=== PATIENT | female | born 1970 | race Hispanic/Latino ===

== ENCOUNTER 2018-08-26 16:26 | Emergency (ER) | payer MEDICARE ==
[2018-08-26] MEDS ORDERED: LIDOCAINE 2%-EPI 1:200,000 20 ML VIAL IJ ONE (16:49)
[2018-08-26] MEDS ORDERED: IBUPROFEN 600 MG TABLET ONE (16:49)
[2018-08-26] MEDS ORDERED: TETANUS/DIPHTHERIA TOXOID [ADULT] 0.5 ML VIAL IM ONE (16:50)
== END 2018-08-26 18:20 | disposition home or self-care (01) ==
LOC: EDH 16:26
DX: S81.011A Laceration without foreign body, right knee, initial encounter (principal); S76.011A Strain of muscle, fascia and tendon of right hip, initial encounter; W18.39XA Other fall on same level, initial encounter; Y93.01 Activity, walking, marching and hiking; Y92.098 Other place in other non-institutional residence as the place of occurrence of the external cause; Y99.8 Other external cause status
CPT/HCPCS: 12032; 73562; 90471; 90714; 99284; J3490

== ENCOUNTER 2018-10-15 12:18 | Emergency (ER) | payer MEDICARE ==
[2018-10-15 13:30] LABS: BASOPHILS % (AUTO) 0.5 % (0.0-5.0); EOSINOPHILS % (AUTO) 0.6 % (0.0-8.0); HEMATOCRIT 38.6 % (36-48); LYMPHOCYTES % (AUTO) 6.7 % (21.0-51.0); MEAN CORPUSCULAR HGB CONC 32.1 g/dL (32.0-36.0); MEAN CORPUSCULAR VOLUME 80.9 fL (79-99); MONOCYTES % (AUTO) 7.3 % (3.0-13.0); NEUTROPHILS % (AUTO) 84.9 % (40.0-77.0); PLATELET COUNT (AUTO) 392 K/uL (130-400); RED BLOOD CELL COUNT(AUTO) 4.77 MIL/uL (4.00-5.50); RED CELL DISTRIBUTION WIDTH 15.3 % (11.0-15.5); WHITE BLOOD COUNT (AUTO) 16.4 K/uL (4.8-10.8)
[2018-10-15] MEDS ORDERED: ONDANSETRON HCL 4 MG/2 ML VIAL ONE (13:46)
[2018-10-15] MEDS ORDERED: ACETAMINOPHEN EXTRA STRENGTH 500 MG TABLET ONE (13:46)
[2018-10-15] MEDS ORDERED: MORPHINE SULFATE 4 MG/1ML SYG ONE (13:46)
[2018-10-15] MEDS ORDERED: SODIUM CHLORIDE 0.9% 1000ML 1,000 ML IV ONE (13:47)
[2018-10-15 14:05] LABS: POTASSIUM 4.4 mmol/L (3.5-5.1)
[2018-10-15 14:12] LABS: ALBUMIN 3.3 g/dL (3.5-5.0); BILIRUBIN,TOTAL 0.5 mg/dL (0.2-1.0); TOTAL PROTEIN, SERUM 7.2 g/dL (6.0-8.3)
[2018-10-15 15:22] LABS: APPEARANCE,URINE SL CLOUDY (CLEAR); BILIRUBIN,URINE NEGATIVE (NEGATIVE); COLOR,URINE YELLOW (YELLOW); GLUCOSE, URINE (UA) NEGATIVE (NEGATIVE); KETONES,URINE NEGATIVE (NEGATIVE); LEUKOCYTE ESTERASE ,URINE SMALL (NEGATIVE); NITRATE,URINE NEGATIVE (NEGATIVE); OCCULT BLOOD,URINE NEGATIVE (NEGATIVE); PH,URINE 6.5 (5.0-8.0); PROTEIN,URINE NEGATIVE (NEGATIVE); UROBILINOGEN,URINE 0.2 mg/dL (0.2-1.0)
[2018-10-15 15:24] LABS: HCG,QUAL RESULT NEGATIVE (NEGATIVE)
[2018-10-15] MEDS ORDERED: CEFTRIAXONE SODIUM 1 GM ONE ×2 (16:19→16:22)
[2018-10-15] MEDS ORDERED: SODIUM CHLORIDE 0.9% 100 ML IV ONE (16:19)
[2018-10-15 16:33] LABS: BACTERIA,URINE Moderate /HPF (None Seen); RBC,URINE 0-1 /HPF (0-1); SQUAMOUS EPITHELIAL CELL,UR Moderate /HPF (0-2)
== END 2018-10-15 17:35 | disposition home or self-care (01) ==
LOC: EDH 12:18
DX: N39.0 Urinary tract infection, site not specified (principal); R10.32 Left lower quadrant pain; R50.9 Fever, unspecified; Z98.890 Other specified postprocedural states
CPT/HCPCS: 36415; 74176; 80053; 81001; 81025; 83690; 85025; 96374; 96375; 99285; J0696 ×2; J2270; J2405; J7030

== ENCOUNTER 2019-11-23 12:39 | Emergency (ER) | payer MEDICARE ==
[2019-11-23 13:24] LABS: APPEARANCE,URINE Clear (CLEAR); BILIRUBIN,URINE Negative (NEGATIVE); COLOR,URINE Yellow (YELLOW); GLUCOSE, URINE (UA) Negative (NEGATIVE); KETONES,URINE Negative (NEGATIVE); LEUKOCYTE ESTERASE ,URINE Negative (NEGATIVE); NITRATE,URINE Negative (NEGATIVE); OCCULT BLOOD,URINE Negative (NEGATIVE); PROTEIN,URINE Negative (NEGATIVE); UROBILINOGEN,URINE 0.2 mg/dL (0.2-1.0)
[2019-11-23] MEDS ORDERED: ONDANSETRON HCL 4 MG/2 ML VIAL ONE (13:24)
[2019-11-23] MEDS ORDERED: SODIUM CHLORIDE 0.9% 1000ML 1,000 ML IV ONE (13:25)
[2019-11-23] MEDS ORDERED: KETOROLAC TROMETHAMINE 30MG/ML ONE (13:25)
[2019-11-23 13:27] LABS: BASOPHILS % (AUTO) 0.5 % (0.0-5.0); EOSINOPHILS % (AUTO) 2.8 % (0.0-8.0); HEMATOCRIT 36.1 % (36-48); LYMPHOCYTES % (AUTO) 11.3 % (21.0-51.0); MEAN CORPUSCULAR HEMOGLOBIN 25.3 pg (27.0-33.0); MEAN CORPUSCULAR HGB CONC 31.6 g/dL (32.0-36.0); MEAN CORPUSCULAR VOLUME 80.2 fL (79-99); MONOCYTES % (AUTO) 7.6 % (3.0-13.0); NEUTROPHILS % (AUTO) 77.5 % (40.0-77.0); PLATELET COUNT (AUTO) 455 K/uL (130-400); RED CELL DISTRIBUTION WIDTH 15.7 % (11.0-15.5); WHITE BLOOD COUNT (AUTO) 17.9 K/uL (4.8-10.8)
[2019-11-23 13:41] LABS: CREATININE 0.8 mg/dL (0.5-1.5)
[2019-11-23 13:46] LABS: BILIRUBIN,DIRECT 0.1 mg/dL (0.0-0.3); BILIRUBIN,TOTAL 0.3 mg/dL (0.2-1.0)
== END 2019-11-23 14:50 | disposition home or self-care (01) ==
LOC: EDH 12:39
DX: K52.9 Noninfective gastroenteritis and colitis, unspecified (principal); Z98.890 Other specified postprocedural states
CPT/HCPCS: 36415; 74176; 80048; 80076; 81003; 82550; 83690; 85025; 96361; 96374; 96375; 99284; J1885; J2405; J7030

== ENCOUNTER → 2020-04-14 | Outpatient (CLI) | payer MEDICARE ==
[~2020-04-14] VITALS: Ht 2.5 cm; Wt 93.9 kg
== END | disposition home or self-care (01) ==
LOC: DTH 14:00
PROVIDERS: ATTEND Surgery
DX: E66.09 Other obesity due to excess calories (principal); E11.9 Type 2 diabetes mellitus without complications
CPT/HCPCS: 97802

== ENCOUNTER → 2020-05-14 | Outpatient (CLI) | payer MEDICARE | END | disposition home or self-care (01) | LOC: DTH 10:00 | PROVIDERS: ATTEND Surgery | DX: E66.09 Other obesity due to excess calories (principal); E11.9 Type 2 diabetes mellitus without complications | CPT/HCPCS: 97803 ==

== ENCOUNTER 2020-05-30 06:53 | Day surgery (SDC) | payer MEDICARE ==
[~2020-05-30] VITALS: Ht 152.4 cm; Wt 91.6 kg
[2020-05-30] VITALS (8 sets, daily range): BP systolic 106–142; BP diastolic 65–87
[~2020-05-30 06:53] MED LIST: ALPR1TAB7 PO; BUDE10.22 IH; BUTA-256 PO
[2020-05-30] MEDS ORDERED: MV-M1TAB20 PO (08:26)
[2020-05-30] MEDS ORDERED: SODIUM CHLORIDE 0.9% 1000ML 1,000 ML IV ONE (08:39)
[2020-05-30] MEDS ORDERED: PROPOFOL 10 MG/ML 20ML VIAL IV ONE (09:04)
== END 2020-05-30 09:55 | disposition home or self-care (01) ==
LOC: DAH 06:53 → ENDO 06:53
PROVIDERS: ATTEND Surgery
DX: K21.00 Gastro-esophageal reflux disease with esophagitis, without bleeding (principal); Z20.822 Contact with and (suspected) exposure to COVID-19; E11.9 Type 2 diabetes mellitus without complications; M06.9 Rheumatoid arthritis, unspecified; E66.01 Morbid (severe) obesity due to excess calories; Z98.891 History of uterine scar from previous surgery; Z83.3 Family history of diabetes mellitus; Z82.49 Family history of ischemic heart disease and other diseases of the circulatory system; Z82.61 Family history of arthritis; Z82.3 Family history of stroke; Z68.38 Body mass index [BMI] 38.0-38.9, adult; Z83.42 Family history of familial hypercholesterolemia
CPT/HCPCS: 43239; 93005; A4215 ×2; A4221; A4222; A4223; A4606; A4620; A4657; A4663; C9803; J2704; J7030; U0003

== ENCOUNTER → 2020-06-18 | Outpatient (CLI) | payer MEDICARE ==
[~2020-06-18] MED LIST changes: +MV-M1TAB20 PO
== END | disposition home or self-care (01) ==
LOC: DTH 13:12
PROVIDERS: ATTEND Surgery
DX: E11.9 Type 2 diabetes mellitus without complications (principal); E66.09 Other obesity due to excess calories
CPT/HCPCS: 97803

== ENCOUNTER → 2020-06-24 | Outpatient (CLI) | payer MEDICARE | END | disposition home or self-care (01) | LOC: RAH 13:11 | PROVIDERS: ATTEND Surgery | DX: R06.02 Shortness of breath (principal) | CPT/HCPCS: 71046 ==

== ENCOUNTER 2020-06-30 13:00 | Inpatient (IN) | payer MEDICARE ==
[~2020-06-30] VITALS: Ht 154.9 cm; Wt 90.4 kg
[2020-06-30 15:27] LABS: BASOPHILS % (AUTO) 0.6 % (0.0-5.0); EOSINOPHILS % (AUTO) 3.1 % (0.0-8.0); HEMATOCRIT 36.3 % (36-48); LYMPHOCYTES % (AUTO) 18.9 % (21.0-51.0); MEAN CORPUSCULAR HEMOGLOBIN 24.8 pg (27.0-33.0); MEAN CORPUSCULAR HGB CONC 31.4 g/dL (32.0-36.0); MEAN CORPUSCULAR VOLUME 79.1 fL (79-99); MONOCYTES % (AUTO) 6.9 % (3.0-13.0); NEUTROPHILS % (AUTO) 70.1 % (40.0-77.0); PLATELET COUNT (AUTO) 403 K/uL (130-400); RED BLOOD CELL COUNT(AUTO) 4.59 MIL/uL (4.00-5.50); RED CELL DISTRIBUTION WIDTH 18.2 % (11.0-15.5); WHITE BLOOD COUNT (AUTO) 15.6 K/uL (4.8-10.8)
[2020-06-30 15:37] LABS: CREATININE 0.9 mg/dL (0.5-1.5); POTASSIUM 4.3 mmol/L (3.5-5.1)
[2020-06-30 15:43] LABS: PROTHROMBIN TIME 10.9 SEC (9.6-11.6)
[2020-06-30 15:44] LABS: PARTIAL THROMBOPLASTIN TIME 23.1 SEC (26.3-35.5)
[2020-07-01 09:44] VITALS: BP 114/71
[2020-07-07] VITALS (24 sets, daily range): BP systolic 104–169; BP diastolic 63–95
[2020-07-07] MEDS ORDERED: 0.9% NACL 500ML IV.SOLN 500 ML IV SCH (05:00)
[2020-07-07] MEDS: CEFAZOLIN SODIUM 1 GM VIAL IVP SCH ×2 (06:00→10:50)
[2020-07-07 08:40] LABS: BASOPHILS % (AUTO) 0.5 % (0.0-5.0); EOSINOPHILS % (AUTO) 3.1 % (0.0-8.0); LYMPHOCYTES % (AUTO) 20.4 % (21.0-51.0); MEAN CORPUSCULAR HEMOGLOBIN 24.6 pg (27.0-33.0); MEAN CORPUSCULAR HGB CONC 31.3 g/dL (32.0-36.0); MEAN CORPUSCULAR VOLUME 78.6 fL (79-99); MONOCYTES % (AUTO) 6.6 % (3.0-13.0); PLATELET COUNT (AUTO) 459 K/uL (130-400); RED BLOOD CELL COUNT(AUTO) 5.09 MIL/uL (4.00-5.50); RED CELL DISTRIBUTION WIDTH 17.6 % (11.0-15.5); WHITE BLOOD COUNT (AUTO) 11.6 K/uL (4.8-10.8)
[2020-07-07] MEDS ORDERED: 0.9%NACL 1000ML 1,000 ML IV ONE (09:13)
[2020-07-07] MEDS ORDERED: DIPH25TA51 PO (09:28)
[2020-07-07] MEDS ORDERED: LIDOCAINE PF 100MG/5ML (2%) SYRINGE 5ML ONE (10:01)
[2020-07-07] MEDS ORDERED: SUCCINYLCHOLINE 200MG/10ML SYR ONE (10:01)
[2020-07-07] MEDS ORDERED: ROCURONIUM 10MG/1ML SYR 10 MG/ML ML ONE (10:02)
[2020-07-07] MEDS ORDERED: FENTANYL CITRATE PF 50 MCG/1 ML 2ML VIAL ONE (10:02)
[2020-07-07] MEDS ORDERED: PROPOFOL 10 MG/ML 20ML VIAL IV ONE (10:02)
[2020-07-07] MEDS ORDERED: MIDAZOLAM HCL 1 MG/ML 2ML VIAL ONE (10:12)
[2020-07-07] MEDS ORDERED: BUPIVACAINE/PF 0.5% 30ML VIAL ONE (10:22)
[2020-07-07] MEDS ORDERED: KETOROLAC 30MG VIAL (30MG/ML) ONE (11:29)
[2020-07-07] MEDS ORDERED: ONDANSETRON 4MG INJ ONE ×2 (11:30→11:58)
[2020-07-07] MEDS ORDERED: MEPERIDINE-PF 25 MG/ML SYG ONE ×2 (11:30→11:58)
[2020-07-07] MEDS ORDERED: GLYCOPYRROLATE 1 MG/5 ML SYRINGE ONE (11:30)
[2020-07-07] MEDS ORDERED: NEOSTIGMINE 5MG/5ML SYR IV ONE (11:30)
[2020-07-07] MEDS ORDERED: ONDANSETRON 4MG INJ IVP PRN (11:45)
[2020-07-07] MEDS: LACTATED RINGERS 1000ML 1,000 ML IV SCH ×2 (11:45→19:45)
[2020-07-07] MEDS: MORPHINE 5 MG/ML VIAL (5MG OR GREATER DOSE) IVP PRN ×3 (15:18→23:43)
[2020-07-07] MEDS ORDERED: FAMOTIDINE 20MG VIAL IV ONE (19:27)
[2020-07-07] MEDS ORDERED: ENOXAPARIN SODIUM 30 MG/0.3 ML SQ ONE (19:27)
[2020-07-07] MEDS: ENOXAPARIN SODIUM 30 MG/0.3 ML SQ SCH (19:45)
[2020-07-07] MEDS: FAMOTIDINE 20MG VIAL IV SCH (19:45)
[2020-07-08 03:22] VITALS: BP 171/86
[2020-07-08] MEDS: LACTATED RINGERS 1000ML 1,000 ML IV SCH ×2 (03:48→14:52)
[2020-07-08] MEDS: MORPHINE 5 MG/ML VIAL (5MG OR GREATER DOSE) IVP PRN ×2 (03:53→08:03)
[2020-07-08 05:15] LABS: CREATININE 0.7 mg/dL (0.5-1.5)
[2020-07-08] MEDS: ENOXAPARIN SODIUM 30 MG/0.3 ML SQ SCH (07:59)
[2020-07-08] MEDS: FAMOTIDINE 20MG VIAL IV SCH (07:59)
[2020-07-08 08:01] VITALS: BP 170/90
[2020-07-08] MEDS: KETOROLAC 30MG VIAL (30MG/ML) IM PRN ×2 (09:59→14:58)
[2020-07-08 11:58] VITALS: BP 121/85
== END 2020-07-08 17:55 | disposition home or self-care (01) | DRG 621 ==
LOC: EDSTATUS 13:00 → DAHIP 07-07 07:51 → 3DH 07-07 12:50
PROVIDERS: ADMIT Surgery; ATTEND Surgery
PROC: 0DB64Z3 Excision of Stomach, Percutaneous Endoscopic Approach, Vertical (ICD-10-PCS; principal; 2020-07-07 10:58)
DX: E66.01 Morbid (severe) obesity due to excess calories (principal); K21.9 Gastro-esophageal reflux disease without esophagitis; G47.33 Obstructive sleep apnea (adult) (pediatric); E11.9 Type 2 diabetes mellitus without complications; M06.9 Rheumatoid arthritis, unspecified; Z20.822 Contact with and (suspected) exposure to COVID-19; Z68.37 Body mass index [BMI] 37.0-37.9, adult; Z83.3 Family history of diabetes mellitus; Z82.3 Family history of stroke; Z82.49 Family history of ischemic heart disease and other diseases of the circulatory system; Z82.61 Family history of arthritis
CPT/HCPCS: 36415; 80048; 82948; 85025; 85610; 85730; 86850; 86900; 86901; 88307; 88342; G0378; J0330; J0690; J1650; J1885; J2001; J2175; J2250; J2270; J2405; J2704; J2710; J3010; J3490; J7030; J7040; J7120; U0003

== ENCOUNTER 2020-07-10 01:32 | Emergency (ER) | payer MEDICARE ==
[~2020-07-10 01:32] MED LIST changes: +DIPH25TA51 PO
[2020-07-10 02:09] LABS: BASOPHILS % (AUTO) 0.7 % (0.0-5.0); EOSINOPHILS % (AUTO) 1.8 % (0.0-8.0); HEMATOCRIT 37.8 % (36-48); LYMPHOCYTES % (AUTO) 16.7 % (21.0-51.0); MEAN CORPUSCULAR HEMOGLOBIN 24.9 pg (27.0-33.0); MEAN CORPUSCULAR HGB CONC 31.7 g/dL (32.0-36.0); MEAN CORPUSCULAR VOLUME 78.6 fL (79-99); NEUTROPHILS % (AUTO) 71.6 % (40.0-77.0); PLATELET COUNT (AUTO) 477 K/uL (130-400); RED BLOOD CELL COUNT(AUTO) 4.81 MIL/uL (4.00-5.50); RED CELL DISTRIBUTION WIDTH 17.5 % (11.0-15.5); WHITE BLOOD COUNT (AUTO) 13.7 K/uL (4.8-10.8)
[2020-07-10 02:26] LABS: CREATININE 0.8 mg/dL (0.5-1.5)
[2020-07-10 02:30] LABS: ALBUMIN 3.2 g/dL (3.5-5.0); BILIRUBIN,TOTAL 0.3 mg/dL (0.2-1.0)
[2020-07-10] MEDS ORDERED: ONDANSETRON HCL 4 MG/2 ML VIAL ONE (02:53)
[2020-07-10] MEDS ORDERED: KETOROLAC TROMETHAMINE 30MG/ML ONE (02:54)
[2020-07-10] MEDS ORDERED: SODIUM CHLORIDE 0.9% 1000ML 1,000 ML IV ONE (02:54)
[2020-07-10] MEDS ORDERED: DiphenhydrAMINE HCL 50 MG/ML VIAL ONE (05:29)
[2020-07-10] MEDS ORDERED: PROCHLORPERAZINE EDISYLATE 10 MG/2 ML VIAL ONE (05:29)
[2020-07-10] MEDS ORDERED: SODIUM CHLORIDE 0.9% 50 ML IV ONE (05:30)
== END 2020-07-10 06:45 | disposition home or self-care (01) ==
LOC: EDH 01:32
DX: G44.89 Other headache syndrome (principal); Z20.822 Contact with and (suspected) exposure to COVID-19; E11.9 Type 2 diabetes mellitus without complications; Z98.890 Other specified postprocedural states
CPT/HCPCS: 36415; 70450; 80053; 82550; 83605; 83690; 84484; 85025; 93005; 96361; 96374; 96375; 99285; J0780; J1200; J1885; J2405; J7030

== ENCOUNTER 2020-07-18 04:49 | Emergency (ER) | payer MEDICARE ==
[2020-07-18 05:41] LABS: BASOPHILS % (AUTO) 0.4 % (0.0-5.0); EOSINOPHILS % (AUTO) 1.9 % (0.0-8.0); HEMATOCRIT 35.7 % (36-48); LYMPHOCYTES % (AUTO) 13.2 % (21.0-51.0); MEAN CORPUSCULAR HEMOGLOBIN 24.2 pg (27.0-33.0); MEAN CORPUSCULAR HGB CONC 30.8 g/dL (32.0-36.0); MEAN CORPUSCULAR VOLUME 78.5 fL (79-99); MONOCYTES % (AUTO) 11.1 % (3.0-13.0); PLATELET COUNT (AUTO) 539 K/uL (130-400); RED BLOOD CELL COUNT(AUTO) 4.55 MIL/uL (4.00-5.50); RED CELL DISTRIBUTION WIDTH 17.1 % (11.0-15.5); WHITE BLOOD COUNT (AUTO) 13.8 K/uL (4.8-10.8)
[2020-07-18 05:56] LABS: ALBUMIN 2.7 g/dL (3.5-5.0); BILIRUBIN,TOTAL 0.7 mg/dL (0.2-1.0); CREATININE 0.8 mg/dL (0.5-1.5); PLATELET MORPHOLOGY PLT CLUMPS PRESENT; TOTAL PROTEIN, SERUM 7.4 g/dL (6.0-8.3)
== END 2020-07-18 06:57 | disposition home or self-care (01) ==
LOC: EDH 04:49
DX: D50.9 Iron deficiency anemia, unspecified (principal); Z20.822 Contact with and (suspected) exposure to COVID-19; E11.9 Type 2 diabetes mellitus without complications; Z98.890 Other specified postprocedural states
CPT/HCPCS: 36415; 80053; 85025; 87426; 93005; 99284; U0003

== ENCOUNTER 2024-01-02 09:01 | Day surgery (SDC) | payer OTHER, MEDICARE ==
[2023-12-30 10:06] LABS: BASOPHILS % (AUTO) 0.8 % (0.0-5.0); EOSINOPHILS # (AUTO) 0.42 K/uL (0.00-0.70); EOSINOPHILS % (AUTO) 3.4 % (0.0-8.0); HEMATOCRIT 36.7 % (36-48); IMMATURE GRANULOCYTE ABSOLUTE 0.03 K/uL (0-1); LYMPHOCYTES # (AUTO) 2.1 K/uL (1.0-4.8); LYMPHOCYTES % (AUTO) 16.9 % (21.0-51.0); MEAN CORPUSCULAR HEMOGLOBIN 25.5 pg (27.0-33.0); MEAN CORPUSCULAR HGB CONC 31.1 g/dL (32.0-36.0); MEAN CORPUSCULAR VOLUME 82.1 fL (79-99); MONOCYTES % (AUTO) 8.1 % (3.0-13.0); NEUTROPHILS # (AUTO) 8.9 K/uL (1.8-7.7); NEUTROPHILS % (AUTO) 70.6 % (40.0-77.0); PLATELET COUNT (AUTO) 310 K/uL (130-400); RED BLOOD CELL COUNT(AUTO) 4.47 MIL/uL (4.00-5.50); RED CELL DISTRIBUTION WIDTH 16.3 % (11.0-15.5); WHITE BLOOD COUNT (AUTO) 12.5 K/uL (4.8-10.8)
[2023-12-30 10:15] VITALS: BP 118/64; PULSE 60; RESP 17; TEMP 98
[2023-12-30 12:32] LABS: CREATININE 0.8 mg/dL (0.5-1.0); POTASSIUM 4.8 mmol/L (3.5-5.1)
[~2024-01-02] VITALS: Ht 154.9 cm; Wt 76.9 kg
[~2024-01-02 09:01] MED LIST changes: -BUDE10.22 IH; -BUTA-256 PO; +BUTA-271 PO; -DIPH25TA51 PO; +IBUP-2070 PO; +MELO10CA3 PO; -MV-M1TAB20 PO; +OMEP20CA12 PO
[2024-01-02] MEDS: LACTATED RINGERS 1000ML 1,000 ML IV ONE (09:16)
[2024-01-02] MEDS: ceFAZolin SODIUM 2 GM VIAL ONE (09:16)
[2024-01-02] MEDS ORDERED: FLUT1DIS4 IH (10:03)
[2024-01-02 10:07] LABS: HEMATOCRIT 37.9 % (36-48); MEAN CORPUSCULAR HEMOGLOBIN 25.6 pg (27.0-33.0); MEAN CORPUSCULAR HGB CONC 31.1 g/dL (32.0-36.0); MEAN CORPUSCULAR VOLUME 82.2 fL (79-99); RED BLOOD CELL COUNT(AUTO) 4.61 MIL/uL (4.00-5.50); RED CELL DISTRIBUTION WIDTH 15.7 % (11.0-15.5); WHITE BLOOD COUNT (AUTO) 12.1 K/uL (4.8-10.8)
[2024-01-02 10:25] LABS: INR 0.97 (0.85-1.15); PROTHROMBIN TIME 10.5 SEC (9.6-11.6)
[2024-01-02 11:05] LABS: PARTIAL THROMBOPLASTIN TIME 23.3 SEC (26.3-35.5)
[2024-01-06] MEDS ORDERED: MELO-108 PO (13:27)
== END 2024-01-02 11:05 | disposition home or self-care (01) ==
LOC: DAH 09:01
PROVIDERS: ATTEND Surgery
DX: L30.4 Erythema intertrigo (principal); M79.3 Panniculitis, unspecified; M06.9 Rheumatoid arthritis, unspecified; M41.9 Scoliosis, unspecified; Z98.84 Bariatric surgery status; Z79.01 Long term (current) use of anticoagulants; Z79.899 Other long term (current) drug therapy; Z53.8 Procedure and treatment not carried out for other reasons
CPT/HCPCS: 80048; 84703; 85025; 36415 ×2; 93005; 71045; 85027; 85610; 85730; A6260; A4663; J7120; A4600; J0690

== ENCOUNTER 2024-01-09 07:50 | Observation (INO) | payer OTHER, MEDICARE ==
[2024-01-06 12:49] LABS: BASOPHILS % (AUTO) 0.8 % (0.0-5.0); EOSINOPHILS # (AUTO) 0.65 K/uL (0.00-0.70); EOSINOPHILS % (AUTO) 4.9 % (0.0-8.0); HEMATOCRIT 36.3 % (36-48); IMMATURE GRANULOCYTE ABSOLUTE 0.06 K/uL (0-1); LYMPHOCYTES # (AUTO) 3.2 K/uL (1.0-4.8); LYMPHOCYTES % (AUTO) 24.4 % (21.0-51.0); MEAN CORPUSCULAR HEMOGLOBIN 26.2 pg (27.0-33.0); MEAN CORPUSCULAR HGB CONC 31.7 g/dL (32.0-36.0); MEAN CORPUSCULAR VOLUME 82.7 fL (79-99); MONOCYTES # (AUTO) 0.9 K/uL (0.1-1.0); MONOCYTES % (AUTO) 7.1 % (3.0-13.0); NEUTROPHILS # (AUTO) 8.2 K/uL (1.8-7.7); NEUTROPHILS % (AUTO) 62.3 % (40.0-77.0); PLATELET COUNT (AUTO) 402 K/uL (130-400); RED BLOOD CELL COUNT(AUTO) 4.39 MIL/uL (4.00-5.50); WHITE BLOOD COUNT (AUTO) 13.1 K/uL (4.8-10.8)
[2024-01-06 12:54] VITALS: BP 124/76; PULSE 72; RESP 16; TEMP 97.6
[2024-01-06 13:01] LABS: CREATININE 0.9 mg/dL (0.5-1.0)
[2024-01-06 13:04] LABS: INR 0.96 (0.85-1.15); PROTHROMBIN TIME 10.4 SEC (9.6-11.6)
[2024-01-06 13:05] LABS: PARTIAL THROMBOPLASTIN TIME 25.8 SEC (26.3-35.5)
[~2024-01-09] VITALS: Ht 154.9 cm; Wt 80.2 kg
[2024-01-09] VITALS (28 sets, daily range): BP systolic 106–135; BP diastolic 49–79; PULSE 63–91; RESP 14–18; TEMP 97.4–98.8; O2SAT 98–99
[~2024-01-09 07:50] MED LIST changes: +FLUT1DIS4 IH; +MELO-108 PO; -MELO10CA3 PO
[2024-01-09] MEDS: LACTATED RINGERS 1000ML 1,000 ML IV ONE (08:34)
[2024-01-09] MEDS: ceFAZolin SODIUM 2 GM VIAL ONE (08:34)
[2024-01-09] MEDS ORDERED: dexaMETHasone SOD PHOSPHATE 10MG/ML 1ML VIAL ONE (10:02)
[2024-01-09] MEDS ORDERED: LIDOCAINE PF 100MG/5ML (2%) SYRINGE 5ML ONE (10:02)
[2024-01-09] MEDS ORDERED: MIDAZOLAM HCL 1 MG/ML 2ML VIAL ONE (10:03)
[2024-01-09] MEDS ORDERED: NEOSTIGMINE METHYLSULFATE 1MG/ML IV ONE (10:03)
[2024-01-09] MEDS ORDERED: rocuRONium bROMide 10MG/1ML 5ML VL ONE (10:03)
[2024-01-09] MEDS ORDERED: SUCCINYLCHOLINE CHLORIDE 20 MG/ML 10 ML VIAL ONE (10:03)
[2024-01-09] MEDS ORDERED: GLYCOPYRROLATE 0.2 MG/ML 5 ML VIAL ONE (10:03)
[2024-01-09] MEDS ORDERED: proPOFol 10 MG/ML 20ML VIAL IV ONE (10:03)
[2024-01-09] MEDS ORDERED: ondanSETRON 4MG INJ ONE (10:03)
[2024-01-09] MEDS ORDERED: FENTanyl CITRate PF 50 MCG/1 ML 2ML VIAL ONE (10:04)
[2024-01-09] MEDS: ceFAZolin SODIUM 2 GM VIAL IVPB ONE (11:00)
[2024-01-09] MEDS ORDERED: FENTanyl CITRate PF 50 MCG/1 ML 5ML AMP IV ONE (11:14)
[2024-01-09] MEDS ORDERED: ROPivacaine 0.5% 5MG/ML 30ML ONE (12:36)
[2024-01-09] MEDS: ondanSETRON 4MG INJ ONE (14:05)
[2024-01-09] MEDS: ketOROlac 30MG VIAL (30MG/ML) ONE (14:05)
[2024-01-09] MEDS: acetaMINOPHEN 1,000 MG/100 ML VIAL IV ONE (14:05)
[2024-01-09] MEDS: MEPERIDINE-PF 25 MG/ML SYG ONE ×2 (14:17→14:28)
[2024-01-09] MEDS: FENTanyl CITRate PF 50 MCG/1 ML 2ML VIAL ONE (14:36)
[2024-01-09] MEDS ORDERED: acetaMINOPHEN WITH coDEINE 1 TAB TAB PO PRN (16:00)
[2024-01-09] MEDS: ALBUMIN (HUMAN) 5% 250 ML IV ONE (16:06)
[2024-01-09] MEDS: FAMOTIDINE 20MG VIAL IV ONE (16:06)
[2024-01-09] MEDS: 0.9%NACL 1000ML 1,000 ML IV SCH (16:17)
[2024-01-09] MEDS: morPHINE 4 MG SYG IVP PRN (16:17)
[2024-01-09] MEDS ORDERED: Fluticasone/Salmeterol (Advair 100-50 Diskus) IH PRN (17:00)
[2024-01-09] MEDS: ketOROlac 30MG VIAL (30MG/ML) IVP PRN (17:16)
[2024-01-09] MEDS: ALPRAZolam 1 MG TAB PO SCH (20:02)
[2024-01-09] MEDS: ceFAZolin SODIUM 2 GM VIAL IVPB SCH (21:34)
[2024-01-10] VITALS (7 sets, daily range): BP systolic 98–134; BP diastolic 59–75; PULSE 58–98; RESP 18–20; TEMP 98.1–98.9; O2SAT 96–99
[2024-01-10 06:13] LABS: HEMATOCRIT 27.8 % (36-48); MEAN CORPUSCULAR HEMOGLOBIN 25.3 pg (27.0-33.0); MEAN CORPUSCULAR HGB CONC 30.6 g/dL (32.0-36.0); MEAN CORPUSCULAR VOLUME 82.7 fL (79-99); PLATELET COUNT (AUTO) 370 K/uL (130-400); RED BLOOD CELL COUNT(AUTO) 3.36 MIL/uL (4.00-5.50); WHITE BLOOD COUNT (AUTO) 12.4 K/uL (4.8-10.8)
[2024-01-10 06:17] LABS: CREATININE 0.9 mg/dL (0.5-1.0); POTASSIUM 4.5 mmol/L (3.5-5.1)
[2024-01-10] MEDS: MELOXICAM 7.5 MG TABLET PO SCH (09:44)
[2024-01-10] MEDS: PANTOPrazole 40 MG TAB DR PO SCH (09:45)
[2024-01-11] VITALS: BP 112/59; PULSE 73; RESP 18; TEMP 98.7
[2024-01-11 08:00] VITALS: BP 122/80; PULSE 82; RESP 19; TEMP 99.3
[2024-01-11 08:30] VITALS: O2SAT 100
[2024-01-11] MEDS: acetaMINOPHEN 325 MG TAB PO ONE (11:10)
[2024-01-11 12:00] VITALS: BP 144/78; PULSE 82; RESP 18; TEMP 98.5
[2024-01-11 16:00] VITALS: BP 140/78; PULSE 76; RESP 18; TEMP 98.3
[2024-01-11 20:00] VITALS: BP 139/84; PULSE 82; RESP 17; TEMP 98; O2SAT 100
[2024-01-12] VITALS: BP 117/66; PULSE 75; RESP 17; TEMP 98.1
[2024-01-12 04:00] VITALS: BP 130/78; PULSE 97; RESP 17; TEMP 98
[2024-01-12 08:00] VITALS: BP 122/41; PULSE 93; RESP 19; TEMP 98.4
[2024-01-12 08:30] VITALS: O2SAT 97
[2024-01-12 12:00] VITALS: BP 156/92; PULSE 83; RESP 19; TEMP 98.5
== END 2024-01-12 14:00 | disposition home or self-care (01) ==
LOC: DAH 07:50 → DAHIP 07:51 → DAH 07:51 → 3BH 15:30
PROVIDERS: ADMIT Surgery; ATTEND Surgery
DX: M79.3 Panniculitis, unspecified (principal); Z20.822 Contact with and (suspected) exposure to COVID-19; L30.4 Erythema intertrigo; K21.9 Gastro-esophageal reflux disease without esophagitis; E66.9 Obesity, unspecified; Z79.899 Other long term (current) drug therapy; Z86.2 Personal history of diseases of the blood and blood-forming organs and certain disorders involving the immune mechanism; Z68.33 Body mass index [BMI] 33.0-33.9, adult
CPT/HCPCS: 80048 ×2; 84703; 85025; 85610; 85730; 87426; 36415 ×2; 15847; 15830; 96376 ×4; 96365; 96375; 96366; 85027; 97161; 97116; 97530 ×2; A6260; G0378 ×68; A4663; A4452; P9045; J7120; J3490 ×3; J3010 ×3; J1100; J0330; J2001; J2250; J2704; J2405 ×2; J2270 ×9; J1885 ×7; J2710; J2175 ×2; J2795; J0690 ×4; A4649; A4215 ×2; A4223 ×2; A4222; A4221; A4216

== ENCOUNTER 2024-01-27 15:16 | Emergency (ER) | payer OTHER, MEDICARE ==
[~2024-01-27] VITALS: Ht 154.9 cm; Wt 72.6 kg
[~2024-01-27 15:16] MED LIST changes: -BUTA-271 PO; -IBUP-2070 PO
[2024-01-27 16:33] LABS: BASOPHILS # (AUTO) 0.08 K/uL (0.00-0.20); BASOPHILS % (AUTO) 0.7 % (0.0-5.0); EOSINOPHILS # (AUTO) 0.35 K/uL (0.00-0.70); EOSINOPHILS % (AUTO) 3.1 % (0.0-8.0); HEMATOCRIT 27.8 % (36-48); IMMATURE GRANULOCYTE ABSOLUTE 0.03 K/uL (0-1); LYMPHOCYTES # (AUTO) 2.1 K/uL (1.0-4.8); LYMPHOCYTES % (AUTO) 18.2 % (21.0-51.0); MEAN CORPUSCULAR HEMOGLOBIN 24.9 pg (27.0-33.0); MEAN CORPUSCULAR VOLUME 77.7 fL (79-99); MONOCYTES # (AUTO) 0.8 K/uL (0.1-1.0); MONOCYTES % (AUTO) 7.2 % (3.0-13.0); NEUTROPHILS % (AUTO) 70.5 % (40.0-77.0); PLATELET COUNT (AUTO) 595 K/uL (130-400); RED BLOOD CELL COUNT(AUTO) 3.58 MIL/uL (4.00-5.50); RED CELL DISTRIBUTION WIDTH 15.9 % (11.0-15.5); WHITE BLOOD COUNT (AUTO) 11.4 K/uL (4.8-10.8)
[2024-01-27 16:42] LABS: CREATININE 0.9 mg/dL (0.5-1.0); POTASSIUM 4.2 mmol/L (3.5-5.1)
[2024-01-27 16:47] LABS: ALBUMIN 2.8 g/dL (3.5-5.0); BILIRUBIN,TOTAL 0.1 mg/dL (0.2-1.0); TOTAL PROTEIN, SERUM 7.7 g/dL (6.0-8.3)
[2024-01-27] MEDS ORDERED: IOHEXOL-350 75 ML VIAL IV ONE (17:02)
[2024-01-27 18:29] VITALS: BP 126/74; PULSE 91; RESP 16; TEMP 98.3; O2SAT 98
== END 2024-01-27 18:38 | disposition home or self-care (01) ==
LOC: EDH 15:16
DX: T81.9XXA Unspecified complication of procedure, initial encounter (principal); F41.9 Anxiety disorder, unspecified; M19.90 Unspecified osteoarthritis, unspecified site; Z79.51 Long term (current) use of inhaled steroids; Z79.899 Other long term (current) drug therapy
CPT/HCPCS: 99285; 74177; 80053; 85025; 36415; Q9967